=== PATIENT | female | born 1975 | race Hispanic/Latino ===

== ENCOUNTER → 2019-05-01 | Day surgery (SDC) | payer OTHER ==
[~2019-05-01] MED LIST: BUPIVACAINE HCL 0.5% INJ 30 ML VIAL INJ ONE; CEFAZOLIN SOD 1 GM/NS 50ML 100 ML IV ONE; DEXAMETHASONE SOD PHOS INJ 4 MG/ML VIAL ONE; FENTANYL CITRATE/PF 100MCG/2 ML INJ ONE; KETOROLAC TROMETHAMINE 30 MG/ML VIAL ONE; LIDOCAINE 1% W/EPINEPHRINE 20 ML VIAL ONE; LIDOCAINE HCL 2% LOCAL INJ 5 ML SDV VIAL INJ ONE; LORATADINE10 MG PO; MIDAZOLAM HCL 2 MG/2 ML VIAL ONE; MUPIROCIN 2% OINT 22 GM TUBE ONE; ONDANSETRON HCL INJ 2MG/ML 2ML 2 MG/ML VIAL ONE; PROPOFOL IV EMULSION 10 MG/ML 20 ML VIAL ONE; SEVOFLURANE INHAL SOLN 250 ML PEN BTL ONE
[2019-05-01 13:15] VITALS: BP 113/73
--- NOTE | 2019-05-01 14:18 | Operative Report ---
DATE OF PROCEDURE: 05/01/2019 SURGEON: Stephanie Quiroz DPM PREOPERATIVE DIAGNOSIS: Soft tissue mass, plantar heel. Total was 2 cm x 1.5 cm full thickness. POSTOPERATIVE DIAGNOSIS: Soft tissue mass, plantar heel. Total was 2 cm x 1.5 cm full thickness. PROCEDURE: Excision of soft tissue mass, 2 cm x 1.5 cm with cauterization of the base. SPECIMEN: Sent for pathology. ANESTHESIA: General anesthetic with a local block. HEMOSTASIS: None. ESTIMATED BLOOD LOSS: Less than 5 mL. MATERIALS: None. COMPLICATIONS: None. CONDITION: Stable. PROCEDURE IN DETAIL: Under mild sedation, the patient was brought to the operating room, placed on the operating table in supine position. Following IV sedation, anesthesia was obtained with a general anesthetic. At this point, the right foot was scrubbed, prepped, and draped in the usual aseptic manner and the leg was lowered to the table. Attention was then directed to the plantar aspect of the right foot, where a mosaic-type of lesion was noted at the plantar aspect and measured about 2 cm x 1.5 cm. Utilizing sharp dissection, full-thickness, this was removed. It was sent for pathology. The base was cauterized with electrical cautery. It was then rongeured and it was cauterized again. The area was then flushed with copious amount of normal sterile saline solution. A clean dressing was applied consisting of Adaptic, Coban, 4x4s, Kerlix, and an Ishmael bandage. The patient tolerated the procedure and anesthesia well without complications and was transferred to recovery room with vital signs stable and vascular status intact to both feet. The patient will be discharged home when she meets criteria. She was given instructions to be strictly nonweightbearing, to ice and elevate the foot. Follow up with me in the office and to call the office if any questions, concerns, or new problems arise. Stephanie Quiroz DPM ER/MODL /[id number]
== END | disposition home or self-care (01) ==
LOC: OR 09:25
PROVIDERS: ATTEND Podiatrist Foot & Ankle Surgery
DX: B07.9 Viral wart, unspecified (principal)
CPT/HCPCS: 11422; 81025; 88305; J0690; J1100; J1885; J2001; J2250; J2405; J2704; J3010; 88304